=== PATIENT | female | born 1960 | race African-American/Black ===

== ENCOUNTER 2016-07-10 05:45 | Inpatient (IN) | payer OTHER ==
[2016-07-09 10:27] VITALS: BMI 38.5
[~2016-07-10] VITALS: Ht 165.1 cm; Wt 105.7 kg
[2016-07-10] VITALS (12 sets, daily range): BP systolic 121–172; BP diastolic 65–102; PULSE 72–98; RESP 10–20; Ht 165.1 cm; Wt 105.7 kg
[2016-07-10] MEDS ORDERED: CEFAZOLIN 2 GM/50 ML (PMX) 50 ML IVPB ONE (06:00)
[2016-07-10] MEDS ORDERED: ACETAMINOPHEN 1000 MG/100 ML IVPB ONE (07:00)
[2016-07-10] MEDS ORDERED: ROCURONIUM 50 MG INJ ONE (07:00)
[2016-07-10] MEDS ORDERED: CYAN100018 PO (07:06)
[2016-07-10] MEDS ORDERED: OMEP20CA16 PO (07:06)
[2016-07-10] MEDS ORDERED: [UNRECOGNIZED DRUG - CODE] PO (07:06)
[2016-07-10] MEDS ORDERED: RANI150T9 PO (07:06)
--- NOTE | 2016-07-10 07:30 | PREOPHP ---
DATE OF ADMISSION: 07/10/2016 Procedure to be done on 07/10/2016. HISTORY OF PRESENT ILLNESS: This is a 56-year-old female, 0, para 0 patient with a longstan ding of history of fibroid uterus, pelvic pain, abnormal bleeding, history of a vaginal myomectomy i n 1998 and left salpingectomy and right salpingo-oophorectomy and appendectomy in 2005. She has bee n diagnosed with a giant fibroid of about 22 cm with the possibility of adhesions and menopause. Th e patient needs a hysterectomy and a possible left oophorectomy. She has been experiencing pelvic p ain. She is in menopause with hot flashes. The uterus is extremely large, about the navel. She bejarano d an exploratory laparotomy in 2005 at which time a right salpingo-oophorectomy and right appendecto my was done due to a tubo-ovarian abscess. The patient now with a huge uterus about 6 weeks size, b leeding, still with hot flashes, severe back pain and no abdominal pain. Pain and frequency in urin ation all the time. ALLERGIES: THE PATIENT IS NOT ALLERGIC TO ANY MEDICATIONS. MEDICATIONS: She is on Prilosec and iron. REVIEW OF SYSTEMS: No heart disease, no lung disease. No endocrine disease. No neurological or or thopedic disease, no hematology disease. FAMILY HISTORY: Noncontributory. PHYSICAL EXAMINATION: GENERAL APPEARANCE: Good. VITAL SIGNS: Blood pressure 140/90, pulse is 80, respirations 16. She weighs 229 pounds and she is 5 feet 5 inches. HEAD AND NECK: Normal. BREASTS: Soft, nontender, no masses with some yeast underneath her breasts. HEART: Normal sinus rhythm. BACK: Normal. ABDOMEN: The uterus five fingerbreadths above the umbilicus. The abdomen otherwise was with this h uge mass and unable to feel for anything else. EXTREMITIES: Normal. GENITALIA: With vaginal atrophy. Uterus was huge and adnexa are not able to be felt. DIAGNOSES: Perimenopausal syndrome, intractable pelvic pain and bleeding, anemia, previous right sa lpingo-oophorectomy and left salpingectomy, giant fibroid uterus. She had an MRI that shows that th e uterus was 22 cm with several uterine fibroids 9 cm intracavitary and is 8 cm and another 8.7 cm, 4 cm, 3 cm and multiple fibroids, smaller than that. The patient was advised to have the uterus rem nick with an abdominal hysterectomy. She has been advised of the possible risks and possible compli cations of the surgery with her alternatives and options. Written information was provided. She bejarano d no more questions and agreed to go ahead with the procedure with full understanding and no more qu estions. The patient's diagnosis is giant fibroid uterus 22 cm, possible adhesions, menopause, prev ious right salpingo-oophorectomy and left oophorectomy for total abdominal hysterectomy and possible left oophorectomy. Dictated By: GENNA PEREZ/ANNALISE Conf#: [id number] DID#: [id number]
[2016-07-10] MEDS ORDERED: SUCCINYLCHOLINE CHLORIDE 100 MG/5 ML SYG IV ONE (07:31)
[2016-07-10] MEDS ORDERED: CEFAZOLIN 1 GM INJ ONE (07:31)
[2016-07-10] MEDS ORDERED: LIDOCAINE 2% (SDV) 5 ML INJ ONE (07:31)
[2016-07-10] MEDS ORDERED: FENTAnyl 50 MCG/ML VIAL ONE (07:31)
[2016-07-10] MEDS ORDERED: PROPOFOL 20 ML ONE (07:31)
[2016-07-10] MEDS ORDERED: MIDAZOLAM 1 MG/ML 2 ML INJ ONE (07:31)
--- NOTE | 2016-07-10 07:57 | HPN ---
Date/Time of Note Date/Time of Note DATE: 07/10/16 TIME: 07:57 Interval H&P Admission Note Pt. seen H&P reviewed: No system changes GENNA HERBERT MD Jul 10, 2016 07:57
[2016-07-10] MEDS ORDERED: DEXAMETHASONE 4 MG/ML 1 ML INJ ONE (08:18)
[2016-07-10] MEDS ORDERED: ONDANSETRON 4 MG INJ ONE (08:18)
[2016-07-10] MEDS ORDERED: METOCLOPRAMIDE 10 MG INJ ONE (08:18)
[2016-07-10] MEDS ORDERED: HYDROmorphONE 2 MG/ML SYG ONE (08:44)
[2016-07-10] MEDS ORDERED: EPHEDrine SULFATE 50 MG/5 ML SYG ONE (09:03)
[2016-07-10] MEDS ORDERED: VASOPRESSIN 20 UNITS INJ ONE ×2 (09:04→09:08)
[2016-07-10] MEDS ORDERED: VASOPRESSIN 20 UNITS INJ IV ONE ×2 (09:06→09:12)
[2016-07-10] MEDS ORDERED: hydrALAzine 20 MG INJ IV PRN (09:30)
[2016-07-10] MEDS ORDERED: LABETALOL HCL 20MG INJ IV PRN (09:30)
[2016-07-10] MEDS ORDERED: HYDROmorphONE (0.2 MG/ML) 10ML SYG IV PRN ×2 (09:30)
[2016-07-10] MEDS ORDERED: ONDANSETRON 4 MG INJ IV PRN (09:30)
[2016-07-10] MEDS ORDERED: FENTAnyl 50 MCG/ML VIAL IV PRN (09:30)
[2016-07-10] MEDS ORDERED: DIPHENHYDRAMINE 50 MG INJ IV PRN (09:30)
[2016-07-10] MEDS ORDERED: MEPERIDINE 25 MG INJ IV PRN (09:30)
[2016-07-10] MEDS ORDERED: PROCHLORPERAZINE 10 MG INJ IV PRN (09:30)
[2016-07-10] MEDS ORDERED: KETOROLAC 30 MG INJ IV ONE (09:30)
[2016-07-10] MEDS ORDERED: oxyCODONE 5 MG TAB PO PRN (10:00)
[2016-07-10] MEDS ORDERED: KETAMINE 500 MG INJ ONE (10:11)
[2016-07-10] MEDS ORDERED: GLYCOPYRROLATE 1 MG INJ ONE (10:34)
[2016-07-10] MEDS ORDERED: NEOSTIGMINE 3 MG/3 ML SYRINGE ONE (10:34)
[2016-07-10] MEDS ORDERED: KETOROLAC 30 MG INJ ONE (11:22)
[2016-07-10] MEDS ORDERED: HYDROCODONE/APAP (7.5/325) TAB PO PRN ×2 (12:30)
[2016-07-10] MEDS ORDERED: KETOROLAC 30 MG INJ IV PRN (12:30)
[2016-07-10] MEDS ORDERED: ZOLPIDEM 5 MG TAB PO PRN (12:30)
[2016-07-10] MEDS ORDERED: DIPHENHYDRAMINE 50 MG CAP PO PRN ×2 (12:30)
[2016-07-10] MEDS ORDERED: BISACODYL (EC) 5 MG TAB PO ONE (12:30)
[2016-07-10] MEDS ORDERED: BISACODYL 10 MG SUPP PR PRN (12:30)
[2016-07-10] MEDS ORDERED: HYDROCODONE/APAP (5/325) TAB PO PRN ×3 (12:30)
[2016-07-10] MEDS ORDERED: HYDROmorphONE 1 MG/ML SYG IV PRN (12:30)
[2016-07-10] MEDS ORDERED: BISACODYL (EC) 5 MG TAB PO PRN ×2 (12:30)
--- NOTE | 2016-07-10 12:37 | OPPN ---
Date/Time of Note Date/Time of Note DATE: 07/10/16 TIME: 12:34 Operative/Procedure Note Pre-Operative Diagnosis GIANT MULTIPLE FIBROIDS INTRACTABLE MENOMETRORRHAGIA AND PELVIC PAIN PELVIC ADHESIONS PREVIOUS MYOMECTOMY Post-Operative Diagnosis SAME Procedure TOTAL ABDOMINAL HYSTERECTOMY MULTIPLE MYOMECTOMY ENTEROLYSIS LYSIS OF ADHESIONS Surgeon: GENNA HERBERT MD Rn Admit: JAS BYERS MD Anesthesiologist: GIULIANA SANDY MD Estimated blood loss: 250 - 300 ml's Drains FOUZIA SUBCUTANEOUS DRAIN Specimens UTREUS AND CERVIX AND MULTIPLE FIBROIDS Complications: None Anesthesia type: general GENNA HERBERT MD Jul 10, 2016 12:37
[2016-07-10] MEDS: LACTATED RINGER'S 1,000 ML IV SCH ×2 (12:44→20:56)
[2016-07-10] MEDS ORDERED: CEFAZOLIN 1 GM/50 ML (PMX) 50 ML IVPB SCH (14:00)
--- NOTE | 2016-07-10 14:14 | OPR ---
DATE OF OPERATION: 07/10/2016 OPERATION PERFORMED: Total abdominal hysterectomy, multiple myomectomy, enterolysis, lysis of adhes ions, bilateral retroperitoneal ureteral dissection. PREOPERATIVE DIAGNOSES: 1. Giant multiple fibroids, 22 cm. 2. Intractable menometrorrhagia, pelvic pain, pelvic adhesions. 3. Previous myomectomy. POSTOPERATIVE DIAGNOSES: 1. Giant multiple fibroids, 22 cm. 2. Intractable menometrorrhagia, pelvic pain, pelvic adhesions. 3. Previous myomectomy. SURGEON: Genna Foley MD FISHERIES INSPECTOR: Tray Keith MD ANESTHESIOLOGIST: Dr. Buchanan. DRAINS: Zac subcutaneous drain. SPECIMENS: Uterus, cervix and multiple fibroids. PROCEDURE: The patient was given general anesthesia and placed in the supine position. The abdomen was prepped and draped and a Jones catheter was placed in the bladder. The uterus was palpated 2 f ingerbreadths above the navel. of the patient, she wanted a transverse incision. We made a very long transverse suprapubic incision to be able to get to the fibroids that are so large. The i ncision was done to the fascia. The rectus muscles were detached from the insertion at the level of the tendon to be able to have more space. The midline incision was made. One of the fibroids in th e cavity was reached and the exploration of the cavity revealed that the uterus had bowel adhesions on the top all around the posterior area and there were large multiple fibroids. To access the uter us to remove it, the myomectomy was started to be able to take the uterus out of the abdomen. The my omectomy of the largest fibroid was done, injecting Pitressin around the fibroid and a midline incis ion was made. The fibroid was shelled out and 3 or 4 more fibroids about the size of an orange were removed to be able to bring the uterus out of the abdomen. The dissection was done and enterolysis to be able to take the uterus out after the myomectomy. There were omental adhesions as well and a t this time the bilateral retroperitoneal urethral dissection was done to be able to know the anatom y and be able to shell out this giant fibroid. The round ligaments were clamped, cut and burned wit h the LigaSure instrument. Also, the ovarian ligament and tubes were cut with the LigaSure and the uterine vessels were cauterized with the LigaSure instrument. Straight Naa clamps were placed th rough the cardinal ligaments and uterosacral ligaments and the uterus was cut at the level of the ce rvix. The cervix was removed by cutting and placing sutures on the cardinal ligaments and uterosacr al ligaments with [id number] sutures with #1 Vicryl. Posteriorly the vaginal cuff was entered. The cervix was all removed and the corners of the vagina were held and the vagina was closed with #1 Vicryl interrupted sutures. Hemostasis was good. The bowel was inspected and found to be normal . The bleeding was inspected and found to be normal. Again, the ureters were tracked down and diss ected away from the incisional and the incision and stitches. The bladder was intact, and at this p oint Interceed was placed on the vaginal cuff. The ovaries were very atrophic and involved in adhes ions of the omentum in both sides. The cavity was cleaned out and closed in layers using a 2-0 Vicry l for the peritoneum. The rectus muscle was placed back up to tendon area with interrupted sutures with #0 chromic and the fascia was closed with #1 PDS loop suture. The subcutaneous tissue was revi sed and we put a couple of Surgicel underneath the fascia for protection of bleeding at the level of the muscle before using the PDS loop suture. A Zac drain was placed on the top of the fascia due to her weight and brought out to the left side of the incision, about 5 cm up, with a knife. This drain was applied and tacked to the skin with a #1 nylon. The subcutaneous tissue was closed with i nterrupted sutures of 2-0 Vicryl. The skin was closed with subcuticular 3-0 Monocryl, Dermabond and Steri-Strips. The patient tolerated the procedure well and left the OR awake and stable. Sponge c ounts, instrument counts, and needle counts were correct. Intravenous antibiotics were given for pr ophylaxis. Blood loss was approximately 250 mL. The urine was clear at the end of the procedure. Dictated By: GENNA PEREZ/ANNALISE Conf#: [id number] DID#: [id number]
[2016-07-10] MEDS: KETOROLAC 30 MG INJ IV SCH ×2 (15:00→20:56)
[2016-07-10] MEDS: CEFAZOLIN 2 GM/50 ML (PMX) 50 ML IVPB SCH ×2 (15:33→22:00)
[2016-07-10] MEDS: CIPROFLOXACIN 500 MG TAB PO SCH (17:48)
[2016-07-10] MEDS: METOCLOPRAMIDE 10 MG INJ IV SCH (17:49)
[2016-07-10] MEDS: METOCLOPRAMIDE 10 MG TAB PO SCH ×2 (17:55→23:58)
[2016-07-10] MEDS ORDERED: AMPICILLIN 1 GM/NS (PMX) 50 ML IVPB SCH (18:00)
[2016-07-10] MEDS: RANITIDINE 150 MG TAB PO SCH (20:48)
[2016-07-11] MEDS: METOCLOPRAMIDE 10 MG INJ IV SCH ×4 (00:01→17:19)
[2016-07-11] MEDS: KETOROLAC 30 MG INJ IV SCH ×4 (03:06→20:29)
[2016-07-11 05:56] LABS: ADD SCAN DIFF NO
[2016-07-11 06:00] LABS: BASOPHILS % 0.1 % (0.0-2.0); HEMATOCRIT 35.6 % (37.0-47.0); HEMOGLOBIN 11.3 g/dl (12.0-16.0); LYMPHOCYTES # 0.8 10^3/ul (0.8-2.9); LYMPHOCYTES % 9.4 % (15.0-51.0); MEAN CORPUSCULAR HEMOGLOBIN 26.2 pg (29.0-33.0); MEAN CORPUSCULAR HGB CONC 31.7 g/dl (32.0-37.0); MEAN CORPUSCULAR VOLUME 82.6 fl (82.0-101.0); MEAN PLATELET VOLUME 12.5 fl (7.4-10.4); MONOCYTE # 1.2 10^3/ul (0.3-0.9); NEUTROPHIL # 6.7 10^3/ul (1.6-7.5); NEUTROPHILS % 76.2 % (39.0-77.0); PLATELET COUNT 167 10^3/UL (140-415); RED BLOOD COUNT 4.31 10^6/ul (4.20-5.40); RED CELL DISTRIBUTION WIDTH 15.4 % (11.5-14.5); WHITE BLOOD COUNT 8.8 10^3/ul (4.8-10.8)
[2016-07-11] MEDS: METOCLOPRAMIDE 10 MG TAB PO SCH ×3 (06:00→17:35)
[2016-07-11] MEDS: CEFAZOLIN 2 GM/50 ML (PMX) 50 ML IVPB SCH ×3 (06:12→22:16)
[2016-07-11] MEDS: LACTATED RINGER'S 1,000 ML IV SCH ×2 (06:12→12:13)
[2016-07-11] MEDS: CIPROFLOXACIN 500 MG TAB PO SCH ×2 (06:13→17:35)
[2016-07-11] MEDS: PANTOPRAZOLE (EC) 40 MG TAB PO SCH (06:13)
[2016-07-11 06:28] LABS: POTASSIUM 4.1 mmol/L (3.5-5.1)
[2016-07-11 06:31] LABS: CREATININE 0.73 mg/dl (0.44-1.00)
[2016-07-11 08:23] VITALS: BP 119/57; RESP 18
[2016-07-11] MEDS: RANITIDINE 150 MG TAB PO SCH ×2 (09:07→20:29)
--- NOTE | 2016-07-11 17:23 | PN ---
Date/Time of Note Date/Time of Note DATE: 07/11/16 TIME: 17:21 Assessment/Plan Lines/Catheters IV Catheter Type (from Nrsg): Peripheral IV Jones in Place (from Nrsg): Yes Subjective 24 Hr Interval Summary FEELS GOOD, VOIDING WELL AND PASSING GASES ALREADY. INCISION HEALING GOOD Constitutional: BM, ambulates, flatus, improved, no complaints, urine output Feeding: advancing diet Pain Control: well controlled Detailed Summary Eyes: no complaints ENT: no complaints Respiratory: no complaints Cardiovascular: no complaints Gastrointestinal: no complaints Genitourinary: no complaints Musculoskeletal: no complaints Skin: no complaints Neurologic: no complaints Endocrine: no complaints Lymphatic: no complaints Psychological: nl mood/affect, no complaints Immunologic: no complaints Exam/Review of Systems Vital Signs Vitals Vital Signs Date Time Temp Pulse Resp B/P Pulse Ox O2 Delivery O2 Flow Rate FiO2 07/11/16 08:23 99.2 80 18 119/57 96 07/10/16 13:50 Room Air Intake and Output 07/10/16 07/10/16 07/11/16 15:00 23:00 07:00 Intake Total 1350 ml 1300 ml 1725 ml Output Total 811 ml 210 ml 1805 ml Balance 539 ml 1090 ml -80 ml Exam Constitutional: alert, oriented, well developed Psych: nl mood/affect, no complaints Head: atraumatic, normocephalic Eyes: EOMI, nl conjunctiva, nl lids, nl sclera ENMT: mucosa pink and moist, nl external ears & nose, nl lips & teeth, nl nasal mucosa & septum Neck: non-tender, supple Respiratory: clear to auscultation, normal air movement Cardiovascular: nl pulses, regular rate and rhythm Gastrointestinal: nl liver, spleen, non-tender, soft Musculoskeletal: nl extremities to inspection, nl gait and stance Extremities: normal pulses Neurological: COMPENSATION EXPERT II-XII intact, nl mental status, nl speech, nl strength Skin: nl turgor, rash or lesions Lymph: nl lymph nodes Results Result Diagram: 07/11/16 0415 07/11/16 0415 GENNA HERBERT MD Jul 11, 2016 17:23
[2016-07-11 19:45] VITALS: BP 142/74; RESP 19
[2016-07-12] MEDS: METOCLOPRAMIDE 10 MG INJ IV SCH ×4 (00:08→17:21)
[2016-07-12] MEDS: KETOROLAC 30 MG INJ IV SCH ×4 (03:06→21:57)
[2016-07-12] MEDS: PANTOPRAZOLE (EC) 40 MG TAB PO SCH (05:40)
[2016-07-12] MEDS: CIPROFLOXACIN 500 MG TAB PO SCH ×2 (05:40→17:21)
[2016-07-12] MEDS: METOCLOPRAMIDE 10 MG TAB PO SCH ×4 (05:41→17:20)
[2016-07-12] MEDS: CEFAZOLIN 2 GM/50 ML (PMX) 50 ML IVPB SCH (05:42)
[2016-07-12 07:15] VITALS: BP 124/65; RESP 16
[2016-07-12] MEDS: RANITIDINE 150 MG TAB PO SCH ×2 (09:23→21:57)
[2016-07-12 11:35] VITALS: BP 104/83; RESP 18
[2016-07-12 19:33] VITALS: BP 129/67; RESP 18
[2016-07-13] MEDS: METOCLOPRAMIDE 10 MG TAB PO SCH ×3 (00:27→13:11)
[2016-07-13] MEDS: KETOROLAC 30 MG INJ IV SCH ×2 (03:14→08:49)
[2016-07-13] MEDS: PANTOPRAZOLE (EC) 40 MG TAB PO SCH (05:12)
[2016-07-13] MEDS: CIPROFLOXACIN 500 MG TAB PO SCH (05:12)
[2016-07-13] MEDS: METOCLOPRAMIDE 10 MG INJ IV SCH ×3 (05:17→12:00)
[2016-07-13 07:50] VITALS: BP 141/73; RESP 18
[2016-07-13] MEDS: RANITIDINE 150 MG TAB PO SCH (08:48)
--- NOTE | 2016-07-13 13:47 | PD.PPDC ---
PLASTIC MOULD MAKER Discharge Instruction Condition Patient Condition: Good Diet Diet: Resume Regular Diet Wound/Drain Care Instructions Wound/Drain Care Instructions: Wash with soap and water Keep clean and dry Follow-up Follow-up with Physician: 1, Week/Weeks Return to clinic for HOSPICE CLINICAL MANAGER Instructions: Fever greater than 101 Chills Worsening abdominal pain Excessive Vaginal Bleeding More than 2 pads per hour Unable to tolerate diet Surgical Instructions: Incisional Drainage Incisional Redness GENNA HERBERT MD Jul 13, 2016 13:47
--- NOTE | 2016-07-13 19:45 | DS ---
DATE OF ADMISSION: 07/10/2016 DATE OF DISCHARGE: 07/13/2016 HISTORY: This is a 56-year-old female patient with a longstanding history of fibroids, myomectomy, abnormal bleeding, history of right salpingo-oophorectomy, and appendectomy in 2005. She has been d iagnosed with a giant fibroid of 22 cm. HOSPITAL COURSE: The patient needs a hysterectomy with a possible left oophorectomy, but at this ti wv, the exploratory laparotomy was done. The patient underwent a total abdominal hysterectomy with myomectomy first since the volume of the uterus was so large that we had to do this to be able to ge t the uterus out of her incision. The myomectomy was first done and then the uterus was removed. T he exploration of the cavity revealed an absent right adnexa. I did not find the left ovary. The p atient probably is in menopause and it was probably hiding in adhesions. The patient did very well after the surgery. A J-Bacon drainage was left in the incision that is still draining. The incisio n is clean and dry and healing well. She is ambulatory. She is eating well. She is voiding well. Pain is controlled with pain medication and she is asking to go home. DISCHARGE INSTRUCTIONS: The patient has been advised to home on Prilosec, ibuprofen, [place], Cipro b .i.d. for possible early UTI. She is to see me on Thursday to remove the MILTON catheter from the inci soco r in the office once it stops draining. She is very stable and she is very happy to go home. Her last hemoglobin was 11.3, hematocrit of 35.6, and white count was normal. She used to be a josafat le bit anemic, so she has no symptoms. She is very happy to go home, and she is stable. She is leticia ng discharged with instructions of calling me if she has any problems or any issues that she needs t o discuss with me. The patient will be seen on Thursday. Dictated By: GENNA PEREZ/ANNALISE Conf#: [id number] DID#: [id number]
== END 2016-07-13 15:30 | disposition home or self-care (01) | DRG 742 ==
LOC: REC 05:45 → PP2 14:19
PROVIDERS: ADMIT Obstetrics & Gynecology; ATTEND Obstetrics & Gynecology
PROC: 0UTC0ZZ Resection of Cervix, Open Approach (ICD-10-PCS; 2016-07-10)
PROC: 0TS80ZZ Reposition Bilateral Ureters, Open Approach (ICD-10-PCS; 2016-07-10)
PROC: 0UT90ZZ Resection of Uterus, Open Approach (ICD-10-PCS; principal; 2016-07-10 07:30)
DX: D25.9 Leiomyoma of uterus, unspecified (principal); N39.0 Urinary tract infection, site not specified; R10.2 Pelvic and perineal pain; N92.1 Excessive and frequent menstruation with irregular cycle; Z78.0 Asymptomatic menopausal state
CPT/HCPCS: 80048; 84703; 85025; 86850; 86900; 86901; 86920; 87086; 88305; 88331; J0131; J0330; J0690; J1100; J1170; J1885; J2250; J2405; J2710; J2765; J3010; J7120

== ENCOUNTER 2016-08-16 20:10 | Inpatient (IN) | payer MEDICAID, OTHER ==
[~2016-08-16] VITALS: Ht 165.1 cm; Wt 228.0 kg
[~2016-08-16 20:10] MED LIST: CYAN100018 PO; OMEP20CA16 PO; RANI150T9 PO
[2016-08-16] MEDS ORDERED: SOD CHLORIDE 0.9% 1,000 ML IV STA (21:15)
[2016-08-16 21:55] LABS: ADD SCAN DIFF NO
[2016-08-16 22:02] LABS: BASOPHILS % 0.5 % (0.0-2.0); EOSINOPHILS % 0.1 % (0.0-7.0); HEMATOCRIT 39.5 % (37.0-47.0); HEMOGLOBIN 12.5 g/dl (12.0-16.0); LYMPHOCYTES # 0.6 10^3/ul (0.8-2.9); LYMPHOCYTES % 8.2 % (15.0-51.0); MEAN CORPUSCULAR HEMOGLOBIN 25.1 pg (29.0-33.0); MEAN CORPUSCULAR HGB CONC 31.6 g/dl (32.0-37.0); MEAN CORPUSCULAR VOLUME 79.3 fl (82.0-101.0); MEAN PLATELET VOLUME 12.4 fl (7.4-10.4); MONOCYTE # 0.2 10^3/ul (0.3-0.9); NEUTROPHIL # 6.7 10^3/ul (1.6-7.5); NEUTROPHILS % 87.9 % (39.0-77.0); PLATELET COUNT 198 10^3/UL (140-415); RED BLOOD COUNT 4.98 10^6/ul (4.20-5.40); RED CELL DISTRIBUTION WIDTH 14.2 % (11.5-14.5); WHITE BLOOD COUNT 7.7 10^3/ul (4.8-10.8)
[2016-08-16 22:15] LABS: CHLORIDE 105 mmol/L (97-110); INR 1.07; PROTIME 13.9 Sec (12.2-14.2); PT RATIO 1.1; SODIUM 142 mmol/L (135-144)
[2016-08-16 22:16] LABS: PARTIAL THROMBOPLASTIN TIME 22.6 Sec (25.0-35.0)
[2016-08-16 22:18] LABS: ANION GAP 18 (8-16); CARBON DIOXIDE 23 mmol/L (21-31); CREATININE 0.68 mg/dl (0.44-1.00)
[2016-08-16 22:19] LABS: BLOOD UREA NITROGEN 16 mg/dl (7-20); CALCIUM 9.5 mg/dl (8.4-10.2); GLUCOSE 112 mg/dl (70-220)
[2016-08-16 22:32] LABS: ADD UMIC NO; URINE BILIRUBIN (Dip) NEGATIVE (NEGATIVE); URINE BLOOD (Dip) NEGATIVE (NEGATIVE); URINE COLOR LT. YELLOW (YELLOW); URINE GLUCOSE (Dip) NEGATIVE (NEGATIVE); URINE KETONES (Dip) 40 (NEGATIVE); URINE LEUKOCYTE ESTERASE (Dip) NEGATIVE (NEGATIVE); URINE NITRITE (Dip) NEGATIVE (NEGATIVE); URINE TOTAL PROTEIN (Dip) NEGATIVE (NEGATIVE); URINE UROBILINOGEN (Dip) 0.2 E.U./dL (0.1-1.0)
[2016-08-16 22:45] LABS: TROPONIN-I < 0.012 ng/ml (0.00-0.12)
--- NOTE | 2016-08-16 22:49 | RADRPT ---
PROCEDURE: XR Chest. CLINICAL INDICATION: Possible stroke. Stroke symptoms. TECHNIQUE: Single frontal view of the chest was obtained COMPARISON: None FINDINGS: Right hand overlies the right lung base, somewhat limiting sensitivity examination. The heart and mediastinum are within normal limits. The lungs are clear. There is no pleural effusion or pneumothorax. IMPRESSION: No acute disease. RPTAT: [facility] Physician Destiny Date Time Electronically viewed and signed by Rena Islas Physician on 08/16/2016 22:49 RS/
--- NOTE | 2016-08-16 23:05 | RADRPT ---
PROCEDURE: CT brain without contrast CLINICAL INDICATION: Stroke symptoms, resolving right arm and leg numbness TECHNIQUE: A CT of the brain was performed utilizing axial sections from the skull base through th e vertex without contrast. Sagittal and coronal images were also reformatted. The exam CTDIvol = 43. 58 mGy and DLP = 630.20 mGy-cm. COMPARISON: None available FINDINGS: No acute intracranial hemorrhage is identified. There is no mass effect or midline shift. No extra -axial fluid collection is seen. The ventricles and sulci are within normal limits for size and con figuration. The density of the brain is within normal limits. Brown-white differentiation is preser gabriela. The osseous structures are unremarkable. The mastoid air cells and visualized paranasal sinuses are clear. RPTAT:HJJR IMPRESSION: Unremarkable noncontrast CT of the brain. Physician Marisela Date Time Electronically viewed and signed by Physician Marisela on 08/16/2016 23:05 /
--- NOTE | 2016-08-16 23:05 | ERA ---
ER Documentation Chief Complaint Date/Time DATE: 08/16/16 TIME: 22:58 Chief Complaint Numbness on the right side of the body No Facial Droop HPI This 56-year-old female presents with right-sided numbness to the entire right side of her body. 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 She had right leg weakness earlier as well. Initially she had slurred speech at the onset which is around 3 PM today, or about 6 hours ago. The slurred speech has resolved completely and she states that she feels less numb than before. He denies any kind of pain. She is never had any symptoms like this before. ROS All systems reviewed and are negative except as per history of present illness. Medications Home Meds Reported Medications Cyanocobalamin (B12 Health Booster) 1,000 Mcg/15 Ml Oral.susp, PO 07/10/16 Ranitidine Hcl* (Zantac*) 150 Mg Tablet, 150 MG PO BID, #60 TAB 07/10/16 Omeprazole* (Omeprazole*) 20 Mg Capsule.dr, 20 MG PO DAILY, #30 CAP 07/10/16 Allergies Allergies: Coded Allergies: Fish Containing Products (Verified Allergy, Unknown, 07/10/16) strawberry (Verified Allergy, Unknown, 07/10/16) PMhx/Soc History of Surgery: Yes (myomectomy,appendectomy,fallopian tube removal, right oophrectomy) Anesthesia Reaction: No Hx Neurological Disorder: No Hx Respiratory Disorders: No Hx Cardiac Disorders: No Hx Psychiatric Problems: No Hx Miscellaneous Medical Probl: No Hx Alcohol Use: Yes (social) Hx Substance Use: No Hx Tobacco Use: No Smoking Status: Never smoker Physical Exam Vitals Vital Signs Date Time Temp Pulse Resp B/P Pulse Ox O2 Delivery O2 Flow Rate FiO2 08/16/16 20:42 98.7 71 20 147/76 98 Physical Exam Const: [] No distress Head: Atraumatic Eyes: Normal Conjunctiva, PERRLA, EOMI ENT: Normal External Ears, Nose and Mouth. Neck: Full range of motion..~ No meningismus. Resp: Clear to auscultation bilaterally Cardio: Regular rate and rhythm, no murmurs Abd: Soft, non tender, non distended. Normal bowel sounds Skin: No petechiae or rashes Back: No midline or flank tenderness Ext: No cyanosis, or edema Neur: Awake and alert and oriented 3, cranial nerves II through XII intact, no cerebellar deficits, right lean manufacturing coordinator strength 4 out of 5, right leg raise with drift and weaker than left. States that has decreased sensation on right side of the body although does have intact 2. sensation, no other deficits. NIH stroke scale equals 3 Psych: Normal Mood and Affect Result Diagram: 08/16/16212608/16/162126 Results 24 hrs Laboratory Tests Test 08/16/16 21:27 08/16/16 21:34 08/16/16 21:50 Activated Partial Thromboplast Time 22.6Sec Anion Gap 18 Basophils # 0.010^3/ul Basophils % 0.5% Blood Urea Nitrogen 16mg/dl Calcium Level 9.5mg/dl Carbon Dioxide Level 23mmol/L Chloride Level 105mmol/L Creatinine 0.68mg/dl Eosinophils # 0.010^3/ul Eosinophils % 0.1% Glucose Level 112mg/dl Hematocrit 39.5% Hemoglobin 12.5g/dl Hemoglobin A1c 5.6% INR International Normalized Ratio 1.07 Lymphocytes # 0.610^3/ul Lymphocytes % 8.2% Mean Corpuscular Hemoglobin 25.1pg Mean Corpuscular Hemoglobin Concent 31.6g/dl Mean Corpuscular Volume 79.3fl Mean Platelet Volume 12.4fl Monocytes # 0.210^3/ul Monocytes % 3.0% Neutrophils # 6.710^3/ul Neutrophils % 87.9% Nucleated Red Blood Cells # 0.010^3/ul Nucleated Red Blood Cells % 0.0/100WBC Platelet Count 50164^3/UL Potassium Level 4.0mmol/L Prothrombin Time 13.9Sec Prothrombin Time Ratio 1.1 Red Blood Count 4.9810^6/ul Red Cell Distribution Width 14.2% Sodium Level 142mmol/L Troponin I < 0.012ng/ml White Blood Count 7.710^3/ul Bedside Glucose 112mg/dL Urine Bilirubin NEGATIVE Urine Clarity CLEAR Urine Color LT. YELLOW Urine Glucose NEGATIVE% Urine Hemoglobin NEGATIVE Urine Ketones 40 Urine Leukocyte Esterase NEGATIVE Urine Nitrite NEGATIVE Urine Specific Spencer 1.010 Urine Total Protein NEGATIVE Urine Urobilinogen 0.2 E.U./dL Urine pH 7.0 Current Medications Medications (Trade) Dose Ordered Sig/Alberto Route PRN Reason Start Time Stop Time Status Last Admin Dose Admin Sodium Chloride (NS) 1,000 ml @ 1,000 mls/hr Q1H STAT IV 08/16/16 21:15 08/16/16 22:14 DC 08/16/16 21:38 Procedures/MDM Stroke symptoms with resolving deficits although some numbness and weakness still present. Patient is likely having a transient ischemic attack. She was given a liter of normal saline and [address] is negative administered 325 mg aspirin. Repeat neurological exam shows no significant change from my initial exam. Patient will definitely need to be admitted and monitored with neuro checks. No signs of acute coronary syndrome. Nonischemic EKG. And admitting the patient to Dr. Romano to telemetry for further workup and monitoring. EKG interpretation: Normal sinus rhythm rate of 67, normal axis, no ST or T- wave changes concerning for acute ischemia. Normal EKG opto mechanical technician interpretation: Normal sinus without arrhythmia Chest x-ray interpretation: No acute process, I see no widened mediastinum, I see no pneumothorax, no infiltrates, no edema, no fractures CT brain interpretation by myself: I see no acute process. No hemorrhage, no mass-effect no midline shift, no cranial bone abnormalities. Normal head CT. Departure Diagnosis: Primary Impression: Transient ischemic attack, acute Condition: Serious WAQARREINALDOEAMON DO Aug 16, 2016 23:05
[2016-08-16 23:06] LABS: BARBITURATES Negative (NEGATIVE); BENZODIAZEPINES Negative (NEGATIVE); CANNABINOIDS Negative (NEGATIVE); COCAINE Negative (NEGATIVE); OPIATES Negative (NEGATIVE)
[2016-08-16] MEDS ORDERED: ACETAMINOPHEN 325 MG TAB PO PRN (23:30)
[2016-08-16] MEDS ORDERED: ONDANSETRON 4 MG INJ IV PRN (23:30)
[2016-08-16] MEDS ORDERED: ASPIRIN 81 MG TAB PO ONE (23:30)
[2016-08-17] VITALS (12 sets, daily range): BP systolic 120–148; BP diastolic 59–74; PULSE 64–74; RESP 16–18; Ht 165.1 cm; Wt 228.0 kg
[2016-08-17] MEDS ORDERED: HYDROCODONE/APAP (5/325) TAB PO PRN
[2016-08-17] MEDS ORDERED: ONDANSETRON 4 MG INJ IV PRN
[2016-08-17] MEDS ORDERED: morphine 2 MG INJ IV PRN
[2016-08-17] MEDS ORDERED: hydrALAzine 20 MG INJ IV PRN
--- NOTE | 2016-08-17 06:19 | HP ---
DATE OF ADMISSION: 08/16/2016 The patient was seen and examined by me on 08/16/2016 at 11:30 p.m. CHIEF COMPLAINT: Right body numbness and right-sided weakness. HISTORY OF PRESENT ILLNESS: The patient is a 56-year-old female who was recently hospitalized from 07/10/2016 to 07/13/2016 for total abdominal hysterectomy with myomectomy performed at that time due to her longstanding history of fibroids who presented earlier today with right-sided numbness on he r entire right side of her body. She also felt some decreased right well cleaner strength as well. The pat sergio also had some right lower extremity weakness as well, and initially she had some slurred speech which occurred around 3:00 p.m. or about 6 hours prior to admission. This has resolved now, and virgen cary has less numbness symptoms. She denies any pain symptoms. No prior history of symptoms of this b efore. No upper or lower GI bleeding. No nausea or vomiting. No fevers or chills. When she came into the ER today, she had a head CT performed that was unremarkable noncontrast CT of the brain. PAST MEDICAL HISTORY: As stated above. ALLERGIES: 1. FISH CONTAINING PRODUCTS. 2. STRAWBERRY. HOME MEDICATIONS: 1. Omeprazole 20 mg daily. 2. Zantac 150 mg b.i.d. 3. Vitamin B12 1000 mcg. PAST SURGICAL HISTORY: She has had a myomectomy, appendectomy, fallopian tube removal, right oophor ectomy. SOCIAL HISTORY: She drinks alcohol occasionally. No IV drug abuse, no smoking. FAMILY HISTORY: Noncontributory. PHYSICAL EXAMINATION: VITAL SIGNS: T-max 98.7, pulse 71, respirations 20, blood pressure 147/76, saturating at 98% on elke m air. GENERAL: The patient is lying in bed, answering questions appropriately, in no acute distress. HEENT: Pupils equal, round, react to light. Extraocular muscles intact. NECK: Supple, no thyromegaly. LUNGS: Clear to auscultation bilaterally. CARDIOVASCULAR: S1, S2 heard. No rubs or gallops. ABDOMEN: Soft, nontender, nondistended. Normal bowel sounds. No rebound or guarding. MUSCULOSKELETAL: No lower extremity edema bilaterally. NEUROLOGIC: She has 4/5 strength right upper and right lower extremities. Otherwise, 5/5 strength in left upper and left lower extremities. Normal, slightly decreased sensation on the side of her b mc. Gait was not assessed. LABORATORY DATA: CBC was normal. Basic metabolic panel was normal. Troponin was negative. Coags are essentially normal. The PTT is 22.6. Head CT results as mentioned above. She also had a chest x-ray which shows no acute disease. ASSESSMENT AND PLAN: A 56-year-old female coming in with right-sided weakness symptoms, transient i schemic attack versus stroke. 1. Right-sided weakness. Again, rule out TIA versus stroke. We will put her on high dose aspirin, do neuro checks every 4 hours, admit her to telemetry floor, and get an echocardiogram, MRI of the brain, and carotid Doppler studies. We will put her on high dose Lipitor, high dose aspirin, get PT and OT consult and speech therapy consult as well. Allow for permissive hypertension as well. 2. Recent history of total abdominal hysterectomy, history of fibroids. No present issues. Contin ue to monitor for now. Monitor for any bleeding since she is going to be on high dose aspirin. 3. Gastrointestinal prophylaxis on famotidine. 4. Deep venous thrombosis prophylaxis, sequential compression devices. Dictated By: AMI ALCARAZ Conf#: [id number] DID#: [id number]
[2016-08-17 07:32] LABS: ADD SCAN DIFF NO
[2016-08-17 07:34] LABS: BASOPHILS % 0.4 % (0.0-2.0); EOSINOPHILS % 0.4 % (0.0-7.0); HEMATOCRIT 37.5 % (37.0-47.0); HEMOGLOBIN 11.8 g/dl (12.0-16.0); LYMPHOCYTES # 1.5 10^3/ul (0.8-2.9); LYMPHOCYTES % 22.2 % (15.0-51.0); MEAN CORPUSCULAR HEMOGLOBIN 25.2 pg (29.0-33.0); MEAN CORPUSCULAR HGB CONC 31.5 g/dl (32.0-37.0); MEAN CORPUSCULAR VOLUME 80.1 fl (82.0-101.0); MEAN PLATELET VOLUME 12.7 fl (7.4-10.4); MONOCYTE # 0.6 10^3/ul (0.3-0.9); NEUTROPHIL # 4.7 10^3/ul (1.6-7.5); NEUTROPHILS % 68.6 % (39.0-77.0); PLATELET COUNT 190 10^3/UL (140-415); RED BLOOD COUNT 4.68 10^6/ul (4.20-5.40); RED CELL DISTRIBUTION WIDTH 14.2 % (11.5-14.5); WHITE BLOOD COUNT 6.9 10^3/ul (4.8-10.8)
[2016-08-17 07:54] LABS: POTASSIUM 3.7 mmol/L (3.5-5.1)
[2016-08-17 07:57] LABS: CREATININE 0.63 mg/dl (0.44-1.00)
[2016-08-17 07:58] LABS: CALCIUM 8.7 mg/dl (8.4-10.2)
[2016-08-17 08:53] LABS: THYROID STIMULATING HORMONE 0.783 MIU/L (0.465-4.680)
[2016-08-17] MEDS ORDERED: HEPARIN 5,000 UNIT/0.5 ML SYG SC SCH (09:00)
[2016-08-17] MEDS: ATORVASTATIN 80 MG TAB PO SCH (09:01)
[2016-08-17] MEDS: FAMOTIDINE 20 MG TAB PO SCH (09:01)
[2016-08-17] MEDS: ASPIRIN (EC) 325 MG TAB PO SCH (09:01)
--- NOTE | 2016-08-17 11:08 | RADRPT ---
PROCEDURE: US carotid arteries. CLINICAL INDICATION: Dizziness. Cerebrovascular accident. TECHNIQUE: Multiple sonographic images of the carotid arteries and vertebral arteries were obtaine d utilizing jeffrey scale, duplex, and color-flow imaging. The images were reviewed on a PACS workstati on. COMPARISON: No prior studies are available for comparison. FINDINGS: Evaluation of the right carotid bifurcation region reveals no atherosclerotic disease. Evaluation of the left carotid bifurcation region reveals no atherosclerotic disease. There is antegrade flow within the vertebral arteries bilaterally. RIGHT CAROTID MEASUREMENTS: Common Carotid Aqeeox23 (cm/sec) Internal Carotid Artery 60 (cm/sec) External Carotid Artery 73 (cm/sec) Vertebral Artery 50 (cm/sec) Internal Carotid/Common Carotid0.7 LEFT CAROTID MEASUREMENTS: Common Carotid Inyszu79 (cm/sec) Internal Carotid Artery 99 (cm/sec) External Carotid Artery 77 (cm/sec) Vertebral Artery 53 (cm/sec) Internal Carotid/Common Carotid1.2 Validated velocity measurements with angiographic measurements. Velocity criteria are extrapolated f rom diameter data as defined by the Society of Radiologists in Ultrasound Consensus Conference. Radi ology 2003; 229;340-346. This study does indirectly reference the measurement of the distal ICA vadim meter as the denominator for stenosis measurement. IMPRESSION: 1. Normal carotid arteries. 2. Normal antegrade flow in the vertebral arteries bilaterally. RPTAT: QQ SRU Consensus Conference Criteria for the Diagnosis of Carotid Artery Stenosis* Degree of Stenosis, % ICA PSV, cm/sec Plaque Estimate, % ICA/CCA PSV Ratio Normal <125 None <2.0 <50 <125 <50 <2.0 50 69 125-230 >50 2.0-4.0 >70 but less than near occlusion >230 >50 <4.0 Near occlusion High, low, or undetectable Visible Variable Total occlusion Undetectable Visible, no detectable lumen Not applicable *Cartoid artery stenosis: jeffrey-scale and Doppler US diagnosis. Society of Radiologists in Ultrasound Consensus Conference. Radiology 2003; 229: 340-346 .Puneet Waldrop MD, Date Time Electronically viewed and signed by .Puneet Waldrop MD, on 08/17/2016 11:07 .R/
--- NOTE | 2016-08-17 14:55 | PN ---
Date/Time of Note Date/Time of Note DATE: 08/17/16 TIME: 14:50 Assessment/Plan VTE Prophylaxis VTE Prophylaxis Intervention: SCD's Lines/Catheters IV Catheter Type (from [facility]): [place] Urinary Cath still in place: No Assessment/Plan Chief Complaint/Hosp Course Assessment/Plan: 1. Right-sided weakness. Suspect TIA. carotid doppler and CT scan of brain with no remarkable findings.. cont on antiplatelet therapy. cont on neuro checks. echo and MRI of the brain are pending. PT/OT to follow. 2. Recent history of total abdominal hysterectomy, history of fibroids. No active issue at this time. Will follow 3. Morbid Obesity. Weight reduction advised Gastrointestinal prophylaxis on famotidine. Deep venous thrombosis prophylaxis, sequential compression devices. DISPO/PLAN: PT to follow. Awaiting MRI of brain and echo study. Neurologist to follow Will follow up Discussed plan of care with Dr. Shah. Problems: Subjective 24 Hr Interval Summary Free Text/Dictation no s/s of distress noted at this time. reports little weakness but improving Exam/Review of Systems Vital Signs Vitals Vital Signs Date Time Temp Pulse Resp B/P Pulse Ox O2 Delivery O2 Flow Rate FiO2 08/17/16 12:07 73 08/17/16 12:03 98.9 18 135/74 100 08/16/16 23:30 Room Air Exam Constitutional: alert, oriented Psych: nl mood/affect, no complaints Head: normocephalic Eyes: nl conjunctiva Neck: non-tender, supple, No jvd Respiratory: clear to auscultation, normal air movement Cardiovascular: regular rate and rhythm Gastrointestinal: non-tender, soft Extremities: normal pulses Neurological: nl mental status Skin: nl turgor, rash or lesions Results Result Diagram: 08/17/16 0644 08/17/16 0644 Results 24 hrs Laboratory Tests Test 08/16/16 21:27 08/16/16 21:34 08/16/16 21:50 08/17/16 06:44 Activated Partial Thromboplast Time 22.6 L Anion Gap 18 H 16 Basophils # 0.0 0.0 Basophils % 0.5 0.4 Blood Urea Nitrogen 16 14 Calcium Level 9.5 8.7 Carbon Dioxide Level 23 23 Chloride Level 105 109 Creatinine 0.68 0.63 Eosinophils # 0.0 0.0 Eosinophils % 0.1 0.4 Glucose Level 112 91 Hematocrit 39.5 37.5 Hemoglobin 12.5 11.8 L Hemoglobin A1c 5.6 INR International Normalized Ratio 1.07 Lymphocytes # 0.6 L 1.5 Lymphocytes % 8.2 L 22.2 Mean Corpuscular Hemoglobin 25.1 L 25.2 L Mean Corpuscular Hemoglobin Concent 31.6 L 31.5 L Mean Corpuscular Volume 79.3 L 80.1 L Mean Platelet Volume 12.4 H 12.7 H Monocytes # 0.2 L 0.6 Monocytes % 3.0 8.0 Neutrophils # 6.7 4.7 Neutrophils % 87.9 H 68.6 Nucleated Red Blood Cells # 0.0 0.0 Nucleated Red Blood Cells % 0.0 0.0 Platelet Count 198 190 Potassium Level 4.0 3.7 Prothrombin Time 13.9 Prothrombin Time Ratio 1.1 Red Blood Count 4.98 4.68 Red Cell Distribution Width 14.2 14.2 Sodium Level 142 144 Troponin I < 0.012 White Blood Count 7.7 6.9 Bedside Glucose 112 Urine Amphetamines Screen Negative Urine Barbiturates Negative Urine Benzodiazepines Screen Negative Urine Bilirubin NEGATIVE Urine Cannabinoids Negative Urine Clarity CLEAR Urine Cocaine Screen Negative Urine Color LT. YELLOW Urine Glucose NEGATIVE Urine Hemoglobin NEGATIVE Urine Ketones 40 Urine Leukocyte Esterase NEGATIVE Urine Nitrite NEGATIVE Urine Opiates Screen Negative Urine Specific [place] 1.010 Urine Total Protein NEGATIVE Urine Urobilinogen 0.2 E.U./dL Urine pH 7.0 Cholesterol Level 158 Cholesterol/HDL Ratio 2.0 HDL Cholesterol 77 LDL Cholesterol, Calculated 66 Thyroid Stimulating Hormone (TSH) 0.783 Triglycerides Level 73 Medications Medications Current Medications Ondansetron HCl (Zofran Inj) 4 mg Q6H PRN IV NAUSEA AND/OR VOMITING; Start at 00:00 Aspirin (Ecotrin) 325 mg DAILY PO Last administered on 08/17/16 09:01; Admin Dose 325 MG; Start 08/17/16 at 09:00 Atorvastatin Calcium (Lipitor) 80 mg DAILY PO Last administered on 08/17/16 09 :01; Admin Dose 80 MG; Start 08/17/16 at 09:00 Hydralazine HCl (Apresoline) 10 mg Q6H PRN IV HTN; Start 08/17/16 at 00:00 Famotidine (Pepcid) 20 mg DAILY PO Last administered on 3/19/17at 09:01; Admin Dose 20 MG; Start 08/17/16 at 09:00 Morphine Sulfate (morphine) 2 mg Q4H PRN IV PAIN; Start 08/17/16 at 00:00 Acetaminophen/ Hydrocodone Bitart ([place] (5/325)) 1 tab Q6H PRN PO PAIN; Start 08/17/16 at 00:00 Influenza Virus Vaccine (Fluzone) 0.5 ml ONCE ONCE IM* ; Start 08/18/16 at 09:00 ; Stop 08/18/16 at 09:01 ABHISHEK DUNCAN Aug 17, 2016 14:55
--- NOTE | 2016-08-17 16:23 | CONS ---
Date/Time of Note Date/Time of Note DATE: 08/17/16 TIME: 16:14 Assessment/Plan Assessment/Plan Chief Complaint/Hosp Course Right hemisensory symptoms Problems: Additional Assessment/Plan The patient is a 56-year-old female who was recently hospitalized for total abdominal hysterectomy with myomectomy performed at that time due to her longstanding history of fibroids who presented earlier today with right-sided numbness on her entire right side of her body. She also reporte right upper and lower extremity weakness as well, and initially she had some slurred speech which occurred around 3:00 p.m. or about 6 hours prior to admission. Her symptoms has been resolving. CT brain was unremarkable. Rule out TIA or lacunar stroke. Carotid ultrasound is normal. PLAN: 1 MRI of brain 2 Echocardiogram 3 Continue Aspirin and Atorvastatin 4 PT evaluation and treatment 5 Dr. Bauman will follow in AM Consultation Date/Type/Reason Admit Date/Time Aug 16, 2016 at 23:06 Reason for Consultation Right hemisensory symptoms Referring Provider: AMI HARRIS Hx of Present Illness The patient is a 56-year-old female who was recently hospitalized for total abdominal hysterectomy with myomectomy performed at that time due to her longstanding history of fibroids who presented earlier today with right-sided numbness on her entire right side of her body. She also reporte right upper and lower extremity weakness as well, and initially she had some slurred speech which occurred around 3:00 p.m. or about 6 hours prior to admission. Her symptoms has been resolving. CT brain was unremarkable. Constitutional: no complaints Eyes: no complaints ENT: no complaints Respiratory: no complaints Cardiovascular: no complaints Gastrointestinal: no complaints Genitourinary: no complaints Musculoskeletal: no complaints Skin: no complaints Neurologic: no complaints Endocrine: no complaints Lymphatic: no complaints Psychological: nl mood/affect, no complaints Past Medical History Medical History: no pertinent history Past Surgical History Past Surgical Hx: other (Hysterectomy) Family History Significant Family History: no pertinent family hx Social History Alcohol Use: none Smoking Status: Never smoker Drug Use: none Exam/Review of Systems Vital Signs Vitals Vital Signs Date Time Temp Pulse Resp B/P Pulse Ox O2 Delivery O2 Flow Rate FiO2 08/17/16 12:07 73 08/17/16 12:03 98.9 18 135/74 100 08/16/16 23:30 Room Air Exam Constitutional: alert, oriented, well developed Psych: nl mood/affect, no complaints Head: atraumatic, normocephalic Eyes: EOMI, nl conjunctiva, nl lids, nl sclera ENMT: mucosa pink and moist, nl external ears & nose, nl lips & teeth, nl nasal mucosa & septum Neck: non-tender, supple Respiratory: clear to auscultation, normal air movement Cardiovascular: nl pulses, regular rate and rhythm Gastrointestinal: nl liver, spleen, non-tender, soft Genitourinary - Female: nl adnexae, nl external genitalia Musculoskeletal: nl extremities to inspection, nl gait and stance Extremities: normal pulses Neurological: CNP II-XII intact, nl mental status, nl speech, nl strength Skin: nl turgor, rash or lesions Lymph: nl lymph nodes Results Result Diagram: 08/17/16 0644 08/17/16 0644 Results 24 hrs Laboratory Tests Test 08/16/16 21:27 08/16/16 21:34 08/16/16 21:50 08/17/16 06:44 Activated Partial Thromboplast Time 22.6 L Anion Gap 18 H 16 Basophils # 0.0 0.0 Basophils % 0.5 0.4 Blood Urea Nitrogen 16 14 Calcium Level 9.5 8.7 Carbon Dioxide Level 23 23 Chloride Level 105 109 Creatinine 0.68 0.63 Eosinophils # 0.0 0.0 Eosinophils % 0.1 0.4 Glucose Level 112 91 Hematocrit 39.5 37.5 Hemoglobin 12.5 11.8 L Hemoglobin A1c 5.6 INR International Normalized Ratio 1.07 Lymphocytes # 0.6 L 1.5 Lymphocytes % 8.2 L 22.2 Mean Corpuscular Hemoglobin 25.1 L 25.2 L Mean Corpuscular Hemoglobin Concent 31.6 L 31.5 L Mean Corpuscular Volume 79.3 L 80.1 L Mean Platelet Volume 12.4 H 12.7 H Monocytes # 0.2 L 0.6 Monocytes % 3.0 8.0 Neutrophils # 6.7 4.7 Neutrophils % 87.9 H 68.6 Nucleated Red Blood Cells # 0.0 0.0 Nucleated Red Blood Cells % 0.0 0.0 Platelet Count 198 190 Potassium Level 4.0 3.7 Prothrombin Time 13.9 Prothrombin Time Ratio 1.1 Red Blood Count 4.98 4.68 Red Cell Distribution Width 14.2 14.2 Sodium Level 142 144 Troponin I < 0.012 White Blood Count 7.7 6.9 Bedside Glucose 112 Urine Amphetamines Screen Negative Urine Barbiturates Negative Urine Benzodiazepines Screen Negative Urine Bilirubin NEGATIVE Urine Cannabinoids Negative Urine Clarity CLEAR Urine Cocaine Screen Negative Urine Color LT. YELLOW Urine Glucose NEGATIVE Urine Hemoglobin NEGATIVE Urine Ketones 40 Urine Leukocyte Esterase NEGATIVE Urine Nitrite NEGATIVE Urine Opiates Screen Negative Urine Specific [place] 1.010 Urine Total Protein NEGATIVE Urine Urobilinogen 0.2 E.U./dL Urine pH 7.0 Cholesterol Level 158 Cholesterol/HDL Ratio 2.0 HDL Cholesterol 77 LDL Cholesterol, Calculated 66 Thyroid Stimulating Hormone (TSH) 0.783 Triglycerides Level 73 Medications Medications Current Medications Ondansetron HCl (Zofran Inj) 4 mg Q6H PRN IV NAUSEA AND/OR VOMITING; Start at 00:00 Aspirin (Ecotrin) 325 mg DAILY PO Last administered on 08/17/16 09:01; Admin Dose 325 MG; Start 08/17/16 at 09:00 Atorvastatin Calcium (Lipitor) 80 mg DAILY PO Last administered on 08/17/16 09 :01; Admin Dose 80 MG; Start 08/17/16 at 09:00 Hydralazine HCl (Apresoline) 10 mg Q6H PRN IV HTN; Start 08/17/16 at 00:00 Famotidine (Pepcid) 20 mg DAILY PO Last administered on 08/17/16 09:01; Admin Dose 20 MG; Start 08/17/16 at 09:00 Morphine Sulfate (morphine) 2 mg Q4H PRN IV PAIN; Start 08/17/16 at 00:00 Acetaminophen/ Hydrocodone Bitart ([place] (5/325)) 1 tab Q6H PRN PO PAIN; Start 08/17/16 at 00:00 Influenza Virus Vaccine (Fluzone) 0.5 ml ONCE ONCE IM* ; Start 08/18/16 at 09:00 ; Stop 08/18/16 at 09:01 ILYA COOMBS MD Aug 17, 2016 16:23
--- NOTE | 2016-08-17 16:33 | RADRPT ---
PROCEDURE: MR Brain without contrast. CLINICAL INDICATION: Right-sided weakness beginning 24 hours ago with associated numbness. No michelle or surgery. TECHNIQUE: An MRI of the brain was performed without contrast utilizing the following sequences: Sagittal T1 weighted, sagittal FLAIR, axial T1, axial FLAIR, axial T2 weighted, axial diffusion weig hted, axial ADC mapping. Images were reviewed on a PACS workstation. COMPARISON: CT head 08/16/2016 FINDINGS: Diffusion weighted sequences demonstrate acute infarcts involving the left thalamus/posterior limb i nternal capsule measuring 1.3 x 1.7 cm. There is a second area of infarct involving the left medial temporal lobe/internal cortex, extending into the paramedian left occipital lobe. There is no intr acranial hemorrhage, extra-axial fluid collection, mass lesion, midline shift or hydrocephalous. Th ere is baseline of mild prominence of the cerebral sulci, lateral and third ventricles. The basal ci sterns are patent. There is a baseline of mild periventricular and subcortical T2 / FLAIR signal hy perintensities, likely related to chronic microangiopathic changes. Normal flow voids are visible t he proximal intracranial arteries and dural sinuses, indicating patency. The midline structures are intact. The paranasal sinuses, mastoid air cells and middle ear cavities are normally aerated. The orbits, calvarium and extracranial soft tissues are normal in appearance. The cerebellopontine angles are no rmal. No evidence of internal acoustic canal or cerebellopontine angle mass. IMPRESSION: 1. 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 2. Acute infarct involving the left medial temporal lobe/entorhinal cortex extending posteriorly in to the paramedian left occipital lobe. These infarcts correlate with a left posterior cerebral abilio ry distribution infarct. CTA may be helpful for further evaluation. 3. No intracranial hemorrhage, enhancing mass lesion, infarction or hydrocephalous. The above findings were discussed with Patient's Nurse Carlie by telephone on 08/17/2016 4:29:27 PM. RPTAT: HGAS .Yan Orellana MD, Date Time Electronically viewed and signed by .Yan Orellana MD, on 08/17/2016 16:32 .S/
--- NOTE | 2016-08-17 20:00 | RADRPT ---
Echocardiogram Report Patient Name: IONA GUZMÁN Gender: Female Date: 1960 Study Date: 17-Aug-2016 Building Components Designer: GAEL Location: I Ref. Physician: AMI HARRIS Quality: Technically Difficult Study Procedures: Transthoracic echocardiogram with complete 2D, M-Mode, and Doppler examination. Indications: R/O Cardiac issues. 2D/M Mode Doppler Measurement Value Normal Ranges Measurement Value Normal Ranges AoR Diam MM 3.2 cm AV Peak Jaxon 1.0 m/sec ACS MM 2.1 cm AV Peak PG 3.8 mmHg LVIDd 2D 4.1 3.5 - 5.6 cm LVOT Peak Jaxon 0.8 m/sec LVIDs 2D 2.5 2.1 - 4.1 cm LVOT Peak PG 2.3 mmHg LVPWd 2D 1.2 0.6 - 1.1 cm MV E Peak Jaxon 0.7 m/sec IVSd 2D 1.2 0.6 - 1.1 cm MV A Peak Jaxon 0.5 m/sec EDV 2D 74.0 cm3 MV E/A 1.5 ESV 2D 15.8 cm3 MV Decel Time 115 msec LA Dimen 2D 3.0 2.3 - 4.0 cm MV Decel [place] 6 MV E/A 1.5 TR Peak Jaxon 1.8 m/sec TR Peak PG 13.3 mmHg RVSP 16.3 mmHg Findings Left Ventricle: Normal left ventricular systolic function. Normal left ventricular cavity size. Mild concentric left ventricular hypertrophy. Ejection fraction is visually estimated at 65 %. Tissue Doppler/Mitral Doppler indices are within normal limits. E/E`=8. Right Ventricle: Normal right ventricular size. Normal right ventricular systolic function. Left Atrium: The left atrium is normal in size. Right Atrium: The right atrium is normal in size. Atrial Septum: Normal atrial septum. Mitral Valve: Normal appearance and function of the mitral valve with trace physiologic regurgitation. Aortic Valve: No significant aortic stenosis or insufficiency. Normal trileaflet aortic valve structure. Tricuspid Valve: Normal appearance of the tricuspid valve. Estimated peak PA systolic pressure 16 mmHg. There is trace tricuspid regurgitation. Pulmonic Valve: Pulmonic valve not well visualized. Pericardium: Normal pericardium with no significant pericardial effusion. Aorta: Normal aortic root. IVC: Normal size and normal respiratory collapse consistent with normal right atrial pressure. Pulmonary Artery: Not well visualized. Conclusions 1.Normal left ventricular systolic function. Normal left ventricular cavity size. Mild concentric left ventricular hypertrophy. Ejection fraction is visually estimated at 65 %. Tissue Doppler/Mitral Doppler indices are within normal limits. E/E`=8. 2.Normal appearance and function of the mitral valve with trace physiologic regurgitation. 3.No significant aortic stenosis or insufficiency. Normal trileaflet aortic valve structure. 4.Normal appearance of the tricuspid valve. Estimated peak PA systolic pressure 16 mmHg. There is trace tricuspid regurgitation. Electronically Signed By: Cruz Campoverde 17-Aug-2016 19:59:29 -0700 Patient Name: IONA GUZMÁN Study Date: 17-Aug-2016 [id number]
[2016-08-18] VITALS (9 sets, daily range): BP systolic 125–145; BP diastolic 63–81; PULSE 64–70; RESP 16–18
[2016-08-18] MEDS: ATORVASTATIN 80 MG TAB PO SCH (08:36)
[2016-08-18] MEDS: ASPIRIN (EC) 325 MG TAB PO SCH (08:36)
[2016-08-18] MEDS: FAMOTIDINE 20 MG TAB PO SCH (08:36)
[2016-08-18] MEDS ORDERED: INFLUENZA VIRUS VACCINE 0.5 ML (DISPENSING) IM* ONE (09:00)
[2016-08-18] MEDS ORDERED: ATOR80TA75 PO (12:48)
[2016-08-18] MEDS ORDERED: ASPI325T32 PO (12:48)
--- NOTE | 2016-08-18 12:57 | PN ---
Date/Time of Note Date/Time of Note DATE: 08/18/16 TIME: 12:29 Assessment/Plan VTE Prophylaxis VTE Prophylaxis Intervention: SCD's Lines/Catheters IV Catheter Type (from [facility]rsg): Peripheral IV Urinary Cath still in place: No Assessment/Plan Assessment/Plan 1. Acute infarct in the left thalamus/posterior limb internal capsule, left medial temporal lobe/entorhinal cortex extending posteriorly into the paramedian left occipital lobe, negative carotid us, follow up with echo, on aspirin and lipitor, PT/OT 2. Recent history of total abdominal hysterectomy, history of fibroids. Exam/Review of Systems Vital Signs Vitals Vital Signs Date Time Temp Pulse Resp B/P Pulse Ox O2 Delivery O2 Flow Rate FiO2 08/18/16 08:14 64 08/18/16 08:02 98.2 16 138/75 99 08/16/16 23:30 Room Air Intake and Output 08/17/16 08/17/16 08/18/16 14:59 22:59 06:59 Intake Total 720 ml 2000 ml Balance 720 ml 2000 ml Results Result Diagram: 08/17/16 0644 08/17/16 0644 Medications Medications Current Medications Ondansetron HCl (Zofran Inj) 4 mg Q6H PRN IV NAUSEA AND/OR VOMITING; Start at 00:00 Aspirin (Ecotrin) 325 mg DAILY PO Last administered on 08/18/16 08:36; Admin Dose 325 MG; Start 08/17/16 at 09:00 Atorvastatin Calcium (Lipitor) 80 mg DAILY PO Last administered on 08/18/16 08 :36; Admin Dose 80 MG; Start 08/17/16 at 09:00 Hydralazine HCl (Apresoline) 10 mg Q6H PRN IV HTN; Start 08/17/16 at 00:00 Famotidine (Pepcid) 20 mg DAILY PO Last administered on 08/18/16 08:36; Admin Dose 20 MG; Start 08/17/16 at 09:00 Morphine Sulfate (morphine) 2 mg Q4H PRN IV PAIN; Start 08/17/16 at 00:00 Acetaminophen/ Hydrocodone Bitart ([place] (5/325)) 1 tab Q6H PRN PO PAIN Last administered on 08/18/16 00:59; Admin Dose 1 TAB; Start 3/19/17 at 00:00 SANTANA GARCIA MD Aug 18, 2016 12:42
--- NOTE | 2016-08-18 13:12 | DS ---
Date/Time of Note Date/Time of Note DATE: 08/18/16 TIME: 12:58 Discharge Summary Admission/Discharge Info Admit Date/Time Aug 16, 2016 at 23:06 Discharge Date/Time Final Diagnosis 1. 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 Recent history of total abdominal hysterectomy, history of fibroids. Patient Condition: Stable Consults neurology: Dr. Cuellar and Dr. srinivasan [place] [id number] Radiology Main Line: [phone] DIAGNOSTIC IMAGING REPORT Patient: IONA GUZMÁN : 1960 Age: 56 Sex: F MR #: [id number] DOS: 08/17/16 0000 Ordering MD: AMI HARRIS [place] [facility] [place]Bed[place] [facility] PROCEDURE: MR Brain without contrast. CLINICAL INDICATION: Right-sided weakness beginning 24 hours ago with associated numbness. No prior surgery. TECHNIQUE: An MRI of the brain was performed without contrast utilizing the following sequences: Sagittal T1 weighted, sagittal FLAIR, axial T1, axial FLAIR, axial T2 weighted, axial diffusion weighted, axial ADC mapping. Images were reviewed on a PACS workstation. COMPARISON: CT head 08/16/2016 FINDINGS: Diffusion weighted sequences demonstrate acute infarcts involving the left thalamus/posterior limb internal capsule measuring 1.3 x 1.7 cm. There is a second area of infarct involving the left medial temporal lobe/internal cortex, extending into the paramedian left occipital lobe. There is no intracranial hemorrhage, extra-axial fluid collection, mass lesion, midline shift or hydrocephalous. There is baseline of mild prominence of the cerebral sulci, lateral and third ventricles. The basal cisterns are patent. There is a baseline of mild periventricular and subcortical T2 / FLAIR signal hyperintensities, likely related to chronic microangiopathic changes. Normal flow voids are visible the proximal intracranial arteries and dural sinuses, indicating patency. The midline structures are intact. The paranasal sinuses, mastoid air cells and middle ear cavities are normally aerated. The orbits, calvarium and extracranial soft tissues are normal in appearance. The cerebellopontine angles are normal. No evidence of internal acoustic canal or cerebellopontine angle mass. IMPRESSION: 1. 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 2. Acute infarct involving the left medial temporal lobe/entorhinal cortex extending posteriorly into the paramedian left occipital lobe. These infarcts correlate with a left posterior cerebral artery distribution infarct. CTA may be helpful for further evaluation. 3. No intracranial hemorrhage, enhancing mass lesion, infarction or hydrocephalous. The above findings were discussed with Patient's Nurse Carlie by telephone on 4:29:27 PM. RPTAT: HGAS .Yan Orellana MD, MD Date Time Electronically viewed and signed by .Yan Orellana MD, on 08/17/2016 16: 32 .S/ CC: AMI HARRIS. Hospital Course The patient is a 56-year-old female who was recently hospitalized for total abdominal hysterectomy with myomectomy performed at that time due to her longstanding history of fibroids who presented earlier yesterday with right- sided numbness on her entire right side of her body along with right upper and lower extremity weakness as well, and initially she had some slurred speech which occurred around 3:00 p.m. or about 6 hours prior to admission. The weakness on right side is subsided, the numbness on right side is almost totally resolved except some numbness on right face. She walks well without imbalance. 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 Working on source of emboli , she has negative carotid ultrasound and echocardiography. ECG monitoring without arrhythmia. Cased discussed with neurologist today. Patient will be discharged with home PT. I will instructed the patient and her family to have her see a pond scaler outpatient to work up for possible hypercoagulable state. She will be on aspirin and lipitor and follow up with neurology. Home Meds Active Scripts Atorvastatin* (Atorvastatin*) 80 Mg Tablet, 20 MG PO DAILY, #30 TAB Prov:SANTANA GARCIA MD 08/18/16 Aspirin (Aspir-Janice) 325 Mg Tablet., 325 MG PO DAILY for 30 Days Prov:SANTANA GARCIA MD 08/18/16 Reported Medications Cyanocobalamin (B12 Health Booster) 1,000 Mcg/15 Ml Oral.susp, PO 07/10/16 Ranitidine Hcl* (Zantac*) 150 Mg Tablet, 150 MG PO BID, #60 TAB 07/10/16 Omeprazole* (Omeprazole*) 20 Mg Capsule., 20 MG PO DAILY, #30 CAP 07/10/16 Follow-up Plan PCP in one week Neurology in one week Hematology in one week SANTANA GARCIA MD Aug 18, 2016 13:08
--- NOTE | 2016-08-18 13:32 | CONS ---
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 Ordering Provider: AMI HARRIS Subjective right sided visual deficits persistent memory issues, repeats questions ambulation improved Objective Vital Signs Date Time Temp Pulse Resp B/P Pulse Ox O2 Delivery O2 Flow Rate FiO2 08/18/16 12:33 98.0 69 16 145/81 100 08/16/16 23:30 Room Air Intake and Output 08/17/16 08/17/16 08/18/16 15:00 23:00 07:00 Intake Total 720 ml 2000 ml Balance 720 ml 2000 ml awake and alert oriented to self hospital repeats questions poor recent memory mild aphasia CN: right field cut, no facial asymmetry palate upgoing uvula midline scm/trap Sensory decreased sensation on right Motor intact no drift ambulates without assistance no ataxia Results/Medications Result Diagram: 08/17/1644 08/17/1644 Medications Current Medications Ondansetron HCl (Zofran Inj) 4 mg Q6H PRN IV NAUSEA AND/OR VOMITING; Start at 00:00 Aspirin (Ecotrin) 325 mg DAILY PO Last administered on 08/18/16 08:36; Admin Dose 325 MG; Start 08/17/16 at 09:00 Atorvastatin Calcium (Lipitor) 80 mg DAILY PO Last administered on 08/18/16 08 :36; Admin Dose 80 MG; Start 08/17/16 at 09:00 Hydralazine HCl (Apresoline) 10 mg Q6H PRN IV HTN; Start 08/17/16 at 00:00 Famotidine (Pepcid) 20 mg DAILY PO Last administered on 08/18/16 08:36; Admin Dose 20 MG; Start 08/17/16 at 09:00 Morphine Sulfate (morphine) 2 mg Q4H PRN IV PAIN; Start 08/17/16 at 00:00 Acetaminophen/ Hydrocodone Bitart ([place] (5/325)) 1 tab Q6H PRN PO PAIN Last administered on 08/18/16 00:59; Admin Dose 1 TAB; Start 08/17/16 at 00:00 Assessment/Plan Chief Complaint/Hosp Course 56 year old female with hysterectomy in July, presenting with right sided visual symptoms decreased sensation out of IV tPA window with left 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 Cryptogenic etiology. -maintain normotensive blood pressure -advised weight loss -outpatient evaluation by hematology for hypercoagulable panel, may benefit from testing for sickle cell or thalassemia screening work up for iron deficiency anemia, rarely but occasionally can contribute to a hypercoagulable state -driving prohibited until she has formal visual field testing -outpatient PT /OT/ speech for aphasia planned for discharge home , outpatient neurology follow up advised Problems: LUIS ANTONIO SR MD Aug 18, 2016 13:31
--- NOTE | 2016-08-18 15:47 | RADRPT ---
PROCEDURE: US Lower extremity Venous. CLINICAL INDICATION: Bilateral lower extremity swelling TECHNIQUE: Multiple sonographic images of the bilateral lower extremity deep venous system was obt ained utilizing grayscale, color-flow, compressive sonography and doppler imaging with augmentation. The images were reviewed on a PACS workstation. COMPARISON: None. FINDINGS: There is normal compressibility and flow within the bilateral common femoral, superficial femoral , posterior tibial and popliteal veins. RPTAT: AA IMPRESSION: No sonographic evidence for deep venous thrombosis. .Kojo Mc MD, MD Date Time Electronically viewed and signed by .Kooj Mc MD, MD on 08/18/2016 15:47 .S/
== END 2016-08-18 18:30 | disposition home health service (06) | DRG 65 ==
LOC: E/R 20:10 → MS4 23:06
PROVIDERS: ADMIT Hospitalist; ATTEND Hospitalist
DX: I63.9 Cerebral infarction, unspecified (principal); Z68.45 Body mass index [BMI] 70 or greater, adult; G81.91 Hemiplegia, unspecified affecting right dominant side; E66.01 Morbid (severe) obesity due to excess calories; R20.0 Anesthesia of skin; Z90.710 Acquired absence of both cervix and uterus
CPT/HCPCS: 36415; 70450; 70551; 71010; 80048; 80061; 80307; 81003; 82962; 83036; 84443; 84484; 85025; 85610; 85730; 90686; 93005; 93306; 93880; 93970; 97162; J7030

== ENCOUNTER 2016-11-01 11:33 | Emergency (ER) | payer MEDICAID, OTHER ==
[~2016-11-01] VITALS: Ht 162.6 cm; Wt 95.5 kg
[~2016-11-01 11:33] MED LIST changes: +ASPI325T32 PO; +ATOR80TA75 PO
[2016-11-01 11:35] VITALS: Ht 162.6 cm; Wt 95.5 kg
[2016-11-01] MEDS ORDERED: KETOROLAC 30 MG INJ IV STA (12:46)
[2016-11-01 13:17] LABS: ADD SCAN DIFF NO
[2016-11-01 13:19] LABS: ABNORMAL IP MESSAGE 1; BASOPHILS % 0.5 % (0.0-2.0); EOSINOPHILS # 0.1 10^3/ul (0.0-0.5); EOSINOPHILS % 0.9 % (0.0-7.0); HEMATOCRIT 44.7 % (37.0-47.0); HEMOGLOBIN 14.1 g/dl (12.0-16.0); LYMPHOCYTES # 1.3 10^3/ul (0.8-2.9); LYMPHOCYTES % 17.6 % (15.0-51.0); MEAN CORPUSCULAR HEMOGLOBIN 24.3 pg (29.0-33.0); MEAN CORPUSCULAR HGB CONC 31.5 g/dl (32.0-37.0); MEAN CORPUSCULAR VOLUME 76.9 fl (82.0-101.0); MONOCYTE # 0.5 10^3/ul (0.3-0.9); MONOCYTES % 7.1 % (0.0-11.0); NEUTROPHIL # 5.4 10^3/ul (1.6-7.5); NEUTROPHILS % 73.5 % (39.0-77.0); NUCLEATED RED BLOOD CELLS% 0.3 /100WBC (0.0-0.0); PLATELET COUNT 199 10^3/UL (140-415); RED BLOOD COUNT 5.81 10^6/ul (4.20-5.40); RED CELL DISTRIBUTION WIDTH 16.4 % (11.5-14.5); WHITE BLOOD COUNT 7.4 10^3/ul (4.8-10.8)
[2016-11-01 13:22] LABS: ADD UMIC YES; URINE BILIRUBIN (Dip) NEGATIVE (NEGATIVE); URINE BLOOD (Dip) TRACE (NEGATIVE); URINE COLOR AMBER (YELLOW); URINE GLUCOSE (Dip) NEGATIVE (NEGATIVE); URINE KETONES (Dip) NEGATIVE (NEGATIVE); URINE LEUKOCYTE ESTERASE (Dip) NEGATIVE (NEGATIVE); URINE NITRITE (Dip) NEGATIVE (NEGATIVE); URINE TOTAL PROTEIN (Dip) NEGATIVE (NEGATIVE); URINE UROBILINOGEN (Dip) 0.2 E.U./dL (0.1-1.0)
[2016-11-01 13:38] LABS: ALBUMIN/GLOBULIN RATIO 1.42; BILIRUBIN,INDIRECT 0.6 mg/dl (0-1.1); BILIRUBIN,TOTAL 0.6 mg/dl (0.2-1.3); CALCIUM 9.9 mg/dl (8.4-10.2); CREATININE 0.62 mg/dl (0.44-1.00); TOTAL PROTEIN 8.5 g/dl (6.1-8.1)
[2016-11-01 13:41] LABS: URINE RBCS >50 /HPF (0)
[2016-11-01 13:42] LABS: BACTERIA,URINE MANY
[2016-11-01] MEDS ORDERED: morphine 4 MG/ML VIAL IV STA (14:17)
--- NOTE | 2016-11-01 14:30 | ERD ---
ER Documentation Chief Complaint Date/Time DATE: 11/01/16 TIME: 14:23 Chief Complaint blood stool pain in R side of back bright red blood HPI This is a 56-year-old female presenting to the emergency department for right- sided flank pain 2 weeks. Patient states she has had constant pain that is worse with positioning. Pain is worse with bending down and certain positions while lying. Rates pain 8/10. Pain does not radiate to lower extremities. Denies numbness or tingling or loss of sensation. No dysuria, hematuria, urinary frequency or urinary urgency. Patient also reports she has had intermittent bright red bleeding in stools. No melena. No bleeding in stool yesterday or today. No nausea or vomiting. Denies abdominal pain. No fevers or chills. Had recent hysterectomy 07/10/2016. ROS All systems reviewed and are negative except as per history of present illness. Medications Home Meds Active Scripts Ibuprofen* (Motrin*) 800 Mg Tab, 800 MG PO Q6, #20 TAB Prov:RUTH SERRANO NP 11/01/16 Atorvastatin* (Atorvastatin*) 80 Mg Tablet, 20 MG PO DAILY, #30 TAB Prov:SANTANA GARCIA MD 08/18/16 Aspirin (Aspir-Janice) 325 Mg Tablet., 325 MG PO DAILY for 30 Days Prov:SANTANA GARCIA MD 08/18/16 Reported Medications Cyanocobalamin (B12 Health Booster) 1,000 Mcg/15 Ml Oral.susp, PO 07/10/16 Ranitidine Hcl* (Zantac*) 150 Mg Tablet, 150 MG PO BID, #60 TAB 07/10/16 Omeprazole* (Omeprazole*) 20 Mg Capsule.dr, 20 MG PO DAILY, #30 CAP 07/10/16 Allergies Allergies: Coded Allergies: Fish Containing Products (Verified Allergy, Unknown, 07/10/16) strawberry (Verified Allergy, Unknown, 07/10/16) PMhx/Soc History of Surgery: Yes (myomectomy, appendectomy, fallopian tube removal, right oophrectomy) Anesthesia Reaction: No Hx Neurological Disorder: No Hx Respiratory Disorders: No Hx Cardiac Disorders: No Hx Psychiatric Problems: No Hx Miscellaneous Medical Probl: Yes (ELA, hysterectomy) Hx Alcohol Use: Yes (social) Hx Substance Use: No Hx Tobacco Use: No Smoking Status: Never smoker Physical Exam Vitals Vital Signs Date Time Temp Pulse Resp B/P Pulse Ox O2 Delivery O2 Flow Rate FiO2 11/01/16 11:35 98.0 80 18 137/87 97 Physical Exam Const: No acute distress, alert Head: Atraumatic Eyes: Normal Conjunctiva ENT: Normal External Ears, Nose and Mouth. Neck: Full range of motion..~ No meningismus. Resp: Clear to auscultation bilaterally. No wheezing, rhonchi or crackles. Cardio: Regular rate and rhythm, no murmurs Abd: Soft, non tender, non distended. Normal bowel sounds Skin: No petechiae or rashes Back: No midline or flank tenderness. No CVA tenderness. Ext: No cyanosis, or edema Neur: Awake and alert Psych: Normal Mood and Affect Result Diagram: 11/01/16 1311 11/01/16 1311 Results 24 hrs Laboratory Tests Test 11/01/16 13:11 White Blood Count 7.410^3/ul Red Blood Count 5.8110^6/ul Hemoglobin 14.1g/dl Hematocrit 44.7% Mean Corpuscular Volume 76.9fl Mean Corpuscular Hemoglobin 24.3pg Mean Corpuscular Hemoglobin Concent 31.5g/dl Red Cell Distribution Width 16.4% Platelet Count 44619^3/UL Mean Platelet Volume fl Neutrophils % 73.5% Lymphocytes % 17.6% Monocytes % 7.1% Eosinophils % 0.9% Basophils % 0.5% Nucleated Red Blood Cells % 0.3/100WBC Neutrophils # 5.410^3/ul Lymphocytes # 1.310^3/ul Monocytes # 0.510^3/ul Eosinophils # 0.110^3/ul Basophils # 0.010^3/ul Nucleated Red Blood Cells # 0.010^3/ul Urine Color JONATHAN Urine Clarity CLEAR Urine pH 6.0 Urine Specific [place] 1.025 Urine Ketones NEGATIVE Urine Nitrite NEGATIVE Urine Bilirubin NEGATIVE Urine Urobilinogen 0.2 E.U./dL Urine Leukocyte Esterase NEGATIVE Urine Microscopic RBC >50/HPF Urine Microscopic WBC 10-25/HPF Urine Bacteria MANY Urine Yeast MANY Urine Hemoglobin TRACE Urine Glucose NEGATIVE% Urine Total Protein NEGATIVE Sodium Level 142mmol/L Potassium Level 4.0mmol/L Chloride Level 109mmol/L Carbon Dioxide Level 24mmol/L Anion Gap 13 Blood Urea Nitrogen 17mg/dl Creatinine 0.62mg/dl Glucose Level 107mg/dl Calcium Level 9.9mg/dl Total Bilirubin 0.6mg/dl Direct Bilirubin 0.00mg/dl Indirect Bilirubin 0.6mg/dl Aspartate Amino Transf (AST/SGOT) 166IU/L Alanine Aminotransferase (ALT/SGPT) 207IU/L Alkaline Phosphatase 296IU/L Total Protein 8.5g/dl Albumin 5.0g/dl Globulin 3.50g/dl Albumin/Globulin Ratio 1.42 Current Medications Medications (Trade) Dose Ordered Sig/Alberto Route PRN Reason Start Time Stop Time Status Last Admin Dose Admin Ketorolac Tromethamine (Toradol) 30 mg ONCE STAT IV 11/01/16 12:46 11/01/16 12:48 DC 11/01/16 13:13 Morphine Sulfate (morphine) 4 mg ONCE STAT IV 11/01/16 14:17 11/01/16 14:18 DC Procedures/MDM Patient: IONA GUZMÁN DOB: 1960 Age: 56 Sex: F MR #: [id number] DOS: 11/01/16 1416 Ordering MD: RUTH SERRANO NP Location: [facility] Room/Bed: PROCEDURE: Right upper quadrant abdominal ultrasound. CLINICAL INDICATION: Abdominal pain, abnormal liver function tests, flank pain TECHNIQUE: Brown scale and color doppler ultrasound images of the right upper quadrant. COMPARISON: None FINDINGS: Pancreas: Visualized portions appear of normal echogenicity, no focal lesions. Liver: Morphology: Normal in size and contour. Echogenicity: Normal. Focal lesions: None. Main portal vein: Patent with hepatopetal flow. Biliary System: Normal appearing gallbladder wall. No gallstones seen. No intrahepatic biliary dilatation. Common bile duct measures 3.5 mm in maximal dimension. Kidneys: Right 9.3 cm in length. Right renal cortical thickness is preserved. Normal echogenicity. No hydronephrosis. No renal calculi. No focal lesions. No free fluid identified. IMPRESSION: Normal gallbladder without gallstones. Normal examination. DIAGNOSTIC IMAGING REPORT Patient: IONA GUZMÁN DOB: 1960 Age: 56 Sex: F MR #: [id number] DOS: 11/01/16 1559 Ordering MD: RUTH SERRANO NP Location: [facility] Room/Bed: PROCEDURE: CT abdomen and pelvis without contrast. CLINICAL INDICATION: Abdominal pain. TECHNIQUE: CT scan of the abdomen and pelvis without contrast was performed on a multi-slice CT scanner . Sagittal and coronal reformatted images were obtained from the axial source images. One or more of the following dose reduction techniques were used: - Automated exposure control. - Adjustment of the mA and/or kV according to patient size. - Use of iterative reconstruction technique. DLP 1132.4 mGycm. CTDIvol 20.8 mGy COMPARISON: None FINDINGS: The lung bases are clear. There is limited evaluation of the solid viscera from the lack of IV contrast. The kidneys are symmetric bilaterally with no evidence of renal or ureteral calculi. There is no hydronephrosis or perinephric stranding. There is normal density of the liver with no gross focal lesion or biliary ductal dilatation. The gallbladder has layering material without surrounding inflammation. The spleen is unremarkable without mass. Multiple right-sided low-density adrenal nodule is seen with the largest measuring up to 3.0 x 1.1 cm consistent with adenomas. Sub-centimeter low density left adrenal adenomas are also present. The pancreas is unremarkable without focal lesion or surrounding inflammatory changes. There is no bowel obstruction or focal bowel inflammation. The appendix is removed. There is no free air or free fluid. There are no enlarged lymph nodes. The aorta is unremarkable and there is no acute osseous abnormality. Degenerative changes are seen in the lower lumbar spine. Pelvic organs are not visualized. IMPRESSION: No evidence of renal or ureteral calculi or hydronephrosis. No evidence of bowel obstruction or inflammation. The appendix is removed. Bilateral adrenal adenomas are present. Layering material the gallbladder could represent sludge or possibly stones without surrounding inflammation. MDM: 56-year-old female presents emergency department for right flank pain 2 weeks. Patient also reports intermittent bright red bleeding in stool. Rating pain 8/10. Labs show AST 166, ALT 207, alkaline phosphatase 296. UA shows trace hemoglobin, many bacteria, negative leukocyte esterase, negative nitrite. Gallbladder ultrasound reviewed by radiologist as normal gallbladder without gallstones. Normal examination. IV access obtained and patient given Toradol 30 mg IV. Patient states she continues to have pain especially with stretching and movement. Ordered patient morphine 4 mg IV and patient refused. Patient remains alert, talkative and smiling throughout ED visit. Consulted Dr. Molina regarding this patient. Dr. Molina and I agree that patient now needs CT abdomen and pelvis w/out IV contrast. CT abdomen and pelvis reviewed by radiologist as no evidence of renal or ureteral calculi or hydronephrosis. No evidence of bowel obstruction or inflammation. The appendix is removed. Bilateral adrenal adenomas are present. possible gallstones without surrounding inflammation. Differential diagnosis includes but not limited to acute AK, nephrolithiasis, obstructive uropathy, pancreatitis, hepatitis, peptic ulcer disease, GERD, gastritis and gastroparesis and functional dyspepsia. I doubt acute AK due to patient's normal vital signs, patient denies chest pain , shortness of breath, difficulty breathing or heart palpitations. I doubt pancreatitis due to patient's normal lab results. Patient is appropriate for outpatient management. Upon discharge, patient is unable to be located and appears to have eloped. Departure Diagnosis: Primary Impression: Flank pain Condition: Stable RUTH SERRANO NP Nov 01, 2016 14:30
--- NOTE | 2016-11-01 15:51 | RADRPT ---
PROCEDURE: Right upper quadrant abdominal ultrasound. CLINICAL INDICATION: Abdominal pain, abnormal liver function tests, flank pain TECHNIQUE: Brown scale and color doppler ultrasound images of the right upper quadrant. COMPARISON: None FINDINGS: Pancreas: Visualized portions appear of normal echogenicity, no focal lesions. Liver: Morphology: Normal in size and contour. Echogenicity: Normal. Focal lesions: None. Main portal vein: Patent with hepatopetal flow. Biliary System: Normal appearing gallbladder wall. No gallstones seen. No intrahepatic biliary dilatation. Common bile duct measures 3.5 mm in maximal dimension. Kidneys: Right 9.3 cm in length. Right renal cortical thickness is preserved. Normal echogenicity. No hydronephrosis. No renal calculi. No focal lesions. No free fluid identified. IMPRESSION: Normal gallbladder without gallstones. Normal examination. RPTAT: AADD .Gabriel Fan MD, Date Time Electronically viewed and signed by .Gabriel Fan MD, on 11/01/2016 15:51 .B/
--- NOTE | 2016-11-01 16:34 | RADRPT ---
PROCEDURE: CT abdomen and pelvis without contrast. CLINICAL INDICATION: Abdominal pain. TECHNIQUE: CT scan of the abdomen and pelvis without contrast was performed on a multi-slice [facility] . Sagittal and coronal reformatted images were obtained from the axial source images. One or more of the following dose reduction techniques were used: - Automated exposure control. - Adjustment of the mA and/or kV according to patient size. - Use of iterative reconstruction technique. DLP 1132.4 mGycm. CTDIvol 20.8 mGy COMPARISON: None FINDINGS: The lung bases are clear. There is limited evaluation of the solid viscera from the lack of IV con trast. The kidneys are symmetric bilaterally with no evidence of renal or ureteral calculi. There is no hy dronephrosis or perinephric stranding. There is normal density of the liver with no gross focal lesion or biliary ductal dilatation. The gallbladder has layering material without surrounding inflammation. The spleen is unremarkable without mass. Multiple right-sided low-density adrenal nodule is seen wit h the largest measuring up to 3.0 x 1.1 cm consistent with adenomas. Sub-centimeter low density lef t adrenal adenomas are also present. The pancreas is unremarkable without focal lesion or surrounding inflammatory changes. There is no bowel obstruction or focal bowel inflammation. The appendix is removed. There is no fr ee air or free fluid. There are no enlarged lymph nodes. The aorta is unremarkable and there is no acute osseous abnormality. Degenerative changes are seen i n the lower lumbar spine. Pelvic organs are not visualized. IMPRESSION: No evidence of renal or ureteral calculi or hydronephrosis. No evidence of bowel obstruction or inflammation. The appendix is removed. Bilateral adrenal adenomas are present. Layering material the gallbladder could represent sludge or possibly stones without surrounding infl ammation. RPTAT: AA .Kaila Wilkins MD, MD Date Time Electronically viewed and signed by .Kaila Wilkins MD, MD on 11/01/2016 16:33 .Romie/
[2016-11-01] MEDS ORDERED: IBUP800T25 PO (16:40)
== END 2016-11-01 17:48 | disposition home or self-care (01) ==
LOC: FTE 11:33
DX: R10.9 Unspecified abdominal pain (principal)
CPT/HCPCS: 74176; 76705; 80053; 81001; 85025; J1885; 36415; 96374

== ENCOUNTER 2017-07-08 06:12 | Day surgery (SDC) | END 2017-07-08 10:36 | disposition home or self-care (01) ==